=== PATIENT | female | born 1945 | race Caucasian/White ===

== ENCOUNTER 2016-08-11 11:21 | Day surgery (SDC) | payer MEDICARE, OTHER ==
[~2016-08-11] VITALS: Ht 162.6 cm; Wt 65.8 kg
[~2016-08-11 11:21] MED LIST: ALPR2TAB2 PO; ASCO100089 PO; ASPI-973 PO; BIOT10003 PO; CALC-3 PO; ESTR1PAT81 TRANSDERM; L. A1CAP7 PO; Lidocaine Topical 2% 30 mL Jelly ONE; MONT10TA23 PO; MULT-1018 PO; NIFE30TA79 PO; Sodium Chloride LOK Flush 10 mL Syringe IV PRN; VIT1TABL83 PO; fentaNYL-PF 50 mCg/mL 2 mL Inj IVPUSH PRN
[2016-08-11 12:47] VITALS: BP 126/84; PULSE 66; RESP 10; O2SAT 96
[2016-08-11] MEDS: 0.9% Sodium Chloride 1,000 ML IV PRN ×2 (13:11→13:20)
--- NOTE | 2016-08-11 13:39 | PCM.ENDCOL ---
Colonoscopy Date of Service: Aug 11, 2016 Physician Ra Hatch MD Pre Procedure Diagnosis: Screening and worsening constipation. Post Procedure Dx & Findings: Polyp hemorrhoids Procedure Colonoscopy Prep adequate 12 minutes FINDINGS: After unremarkable rectal examination of the Olympus video colonoscope was inserted patient's anal canal and was advanced to cecum. Landmarks are identified including the ileocecal valve and appendiceal orifice. Scope was withdrawn systematically. In the sigmoid colon there was a 6-7 mm polyp which was removed completely using cold snare. In the rectum retroflexion was done which showed hemorrhoids and anal canal was inspected carefully and way out and hemorrhoids noted. The mucosa of the cecum, ascending, transverse, descending, sigmoid, rectal mucosa lined with whitish, pink, smooth, glistening, normal-appearing mucosa, normal fine branching, underlying vascularity, normal haustra. The patient tolerated procedure and was transported to observation area. Impression Polyp status post complete removal Hemorrhoids Recommendation Repeat colonoscopy 5 years Presedation Assessment Risks and Benefits Informed consent was obtained from the patient after all risks and benefits including but not limited to drug reaction, infection, pain, bleeding, perforation, as well as alternatives were discussed. Patient monitoring Continuous pulse oximetry, cardiac monitoring, blood pressure monitoring, IV access, and oxygen at 2L per nasal cannula. Periprocedural Fentanyl: Fentanyl 100mcg Incrementally Midazolam: Midazolam 5mg Incrementally Complications There were no periprocedural complications identified. Post Procedure Plan Post Procedure Recommendations 1. Restrict activities today. 2. Resume normal activities in the morning. 3. Resume medications. 4. Patient informed of normal post procedure side effects as bloating, drowsiness, blood streaking in the stool. 5. average risk CRCS. If colon polyps come back as: -Hyperplastic- can repeat colonoscopy in 10 years -Tubular adenoma- repeat colonoscopy in 5 years -Tubulovillous/villous adenoma- repeat colonoscopy in 3 years -If any dysplasia- return to clinic as soon as possible 6. Please don't hesitate to call me with any questions. Ra Hatch MD Aug 11, 2016 13:39
[2016-08-11 13:41] VITALS: BP 108/73; PULSE 65; RESP 16; O2SAT 97
[2016-08-11 13:53] VITALS: BP 111/69; PULSE 66; O2SAT 97
--- NOTE | 2016-08-13 10:56 | PATH ---
SURGICAL PATHOLOGY Attending Physician:Ra Hatch M.D. CASE STATUS: Signed Out PATIENT NAME: KURT RUSSELL PID: [id number] : 1945 DATE COLLECTED:08/11/2016 00:00 SPECIMEN: Colon, Biopsy CLINICAL HISTORY: 1).SIGMOID COLON POLYP FINAL DIAGNOSIS: 1.SIGMOID COLON POLYP: TUBULAR ADENOMA. ICD10 CODE D12.5 GROSS DESCRIPTION: The specimen is received in one formalin filled container labeled with the patient's name, sublabeled "sigmoid colon polyp" and consists of a 0.6 x 0.5 x 0.3 CM portion of tissue which is entirely submitted in one cassette. 08/12/2016 DAC MICRO DESCRIPTION: See diagnosis. ICD-9 CODES: CPT CODES: 1: 34106 Electronically Signed Out Ariadna Allen MD [facility] Pathology [facility], [place] [address] Technical component performed at [facility], [address] [place] [address] Ave[address], [place], [address]
== END 2016-08-11 23:59 | disposition home or self-care (01) ==
LOC: END 11:21
PROVIDERS: ATTEND Internal Medicine
DX: D12.5 Benign neoplasm of sigmoid colon (principal); K64.9 Unspecified hemorrhoids; K59.00 Constipation, unspecified; R10.13 Epigastric pain; Z79.890 Hormone replacement therapy; Z79.82 Long term (current) use of aspirin
CPT/HCPCS: 45385; 88305; G0500; J2250; J3010; J7030

== ENCOUNTER 2016-08-17 15:43 | Emergency (ER) | payer MEDICARE, OTHER ==
[~2016-08-17] VITALS: Ht 162.6 cm; Wt 63.6 kg
[~2016-08-17 15:43] MED LIST changes: -Lidocaine Topical 2% 30 mL Jelly ONE; -Sodium Chloride LOK Flush 10 mL Syringe IV PRN; -fentaNYL-PF 50 mCg/mL 2 mL Inj IVPUSH PRN
[2016-08-17 15:48] VITALS: BP 134/87; PULSE 72; RESP 20; O2SAT 97
[2016-08-17 16:29] LABS: BASOPHILS % (AUTO) 0.8 % (0-3); EOSINOPHILS % (AUTO) 3.2 % (0-5); MONOCYTES % (AUTO) 9.5 % (4-12); Mean Corpuscular Hemoglobin 32.1 pg (27.0-35.0); Mean Corpuscular Volume 95.4 fL (81-100); NEUTROPHILS % (AUTO) 69.4 % (40-74); Platelet Count 241 bil/L (150-400)
[2016-08-17 16:48] LABS: Magnesium 2.2 mg/dL (1.6-2.6)
--- NOTE | 2016-08-17 17:33 | ED.REPORT ---
HPI-Abd Pain F 40 and Over Date of Service Aug 17, 2016 ED Provider: Leo Jeronimo MD A 71 year old female with a medical history including hypertension s/p colonoscopy (08/11/16) presents to the ED with intermittent RLQ abdominal pain onset three months ago, worsening this morning upon awakening. The pain now waxes and wanes between being rated 4/10 and rated 8/10, exacerbated by nothing in particular. The patient also reports diarrhea at onset which has since been replaced by constipation. She denies fever, chills, diaphoresis, nausea, vomiting, or other symptoms. Nursing Notes Stated Complaint: SIDE PAIN Chief Complaint: Female Abdominal Pain Nursing Notes Reviewed: Yes ([employer], meds not reconciled) Allergies: Coded Allergies: acetaminophen (Verified Allergy, Unknown, 08/11/16) benzonatate (Verified Allergy, Unknown, 08/11/16) codeine (Verified Allergy, Unknown, 08/11/16) diphenhydramine (Verified Allergy, Unknown, 08/11/16) mannitol (Verified Allergy, Unknown, 08/11/16) metronidazole (Verified Allergy, Unknown, 08/11/16) water for injection,sterile (Verified Allergy, Unknown, 08/11/16) zoledronic acid (Verified Allergy, Unknown, 08/11/16) zolpidem (Verified Allergy, Unknown, 08/11/16) Scheduled Ascorbic Acid (Vitamin C) 1,000 Mg Tab.chew 1,000 MG PO DAILY Aspirin (Aspirin) 81 Mg Tablet 81 MG PO DAILY Estradiol 0.05 mg/24 hr Patch (Estradiol 0.05 mg/24 hr Patch) 1 Each Patch.tdwk 1 PATCH TRANSDERM WEEKLY Montelukast (Montelukast) 10 Mg Tablet 10 MG PO HS Multivitamin (Multi Vitamin Daily) 1 Each Tablet 1 EACH PO DAILY Nifedipine ER (Nifedipine ER) 30 Mg Tab.er.24 30 MG PO DAILY Scheduled PRN Alprazolam (Xanax) 2 Mg Tablet 2 MG PO TID PRN PRN For Anxiety Miscellaneous Medications Biotin (Biotin) 10,000 Mcg Capsule 10,000 MCG PO Calcium Carbonate/Vitamin D3 (Calcium 500+D Tablet Chew) 1 Each Tab.chew 1 EACH PO L. Acidophilus/Bifid. Animalis (Probiotic 5 Billion Cell Cap) 1 Each Cap.sprink 2 EACH PO Vit B Comp/C/FA/Iron/Vit E (Vitamin B Complex Tablet) 1 Each Tablet 1 EACH PO General Time Seen by MD: 17:28 Chief Complaint Abdominal pain Hx Obtained From: Patient Arrived By: Walk-in Sudden in Onset?: No Onset Occurred: More than a week ago... (3 months, worsening this morning) Symptom Duration: Intermittent Location: : RLQ Quality: Painful Severity: Current: Pain level 4 out of 10 Severity: Maximum: Pain level 8 out of 10 Associated with: Reports: Constipation, Diarrhea, Denies: Fever, Nausea Pertinent Negative: Exacerbated by nothing, Relieved by nothing Recent Healthcare: Recent doctor visit, Previous surgery Similar Sx Previous: Yes Past Medical History Past Medical History Hypertension Past Surgical History Spinal surgeries 2 Hysterectomy Cholecystectomy Tonsillectomy Appendectomy Hernia repair x3 Status post colonoscopy 08/11/[address] Hatch, with a removed polyp and some hemorrhoids Smoking History Former Smoker Ambulatory Status Independent Review of Systems Constitutional: Denies: Chills, Fever Respiratory: Denies: Non-productive cough, Shortness of breath GI: Reports: Abdominal pain (RLQ), Constipation, Diarrhea (Resolved), Denies: Nausea, Vomiting Complete sys rev & neg: except as marked. Skin: Denies Diaphoresis Physical Exam Vital Signs Vital Signs (First) Date Time Temp Pulse Resp B/P Pulse Ox O2 Delivery O2 Flow Rate FiO2 08/17/16 15:48 36.6 72 20 134/87 97 Room Air Initial VS: Reviewed, Vital signs normal Head / Eyes: Atraumatic, Normocephalic ENT: Conjunctiva normal, No scleral icterus Neck: Supple, Full range of motion Skin: Warm, Dry, No cyanosis Neurologic: Alert, Oriented, Nonfocal Psychiatric: Mood/affect normal, Behavior normal, Normal thought content General/Constitutional: Awake, Alert, No acute distress Respiratory / Chest: Breath sounds NL, Breath sounds = bilat, No respiratory distress Cardiovascular: Heart rate NL, Regular rhythm, Heart sounds NL Abdomen: Soft, No guarding, No rebound Tenderness/Guarding/Rebound: Positive: Tender RLQ... (Trace) Interpretation & Diagnostics URINE DIPSTICK: 1.025 sp gravity 5 pH Trace Protein Normal Glucose + Small Ketones Normal Urobilinogen Trace Blood Otherwise Negative Lab Results Interpretation Result Diagram: 08/17/16 1618 08/17/16 1618 Test 08/17/16 16:18 08/17/16 16:54 White Blood Count 5.3th/mm3 (3.8-10.1) Red Blood Count 4.39mil/mm3 (3.90-5.20) Hemoglobin 14.1g/dL (12.0-15.6) Hematocrit 41.9% (35.0-46.0) Mean Corpuscular Volume 95.4fL (81-100) Mean Corpuscular Hemoglobin 32.1pg (27.0-35.0) Mean Corpuscular Hemoglobin Concent 33.7% (32.0-37.0) Red Cell Distribution Width 12.5% (12.3-15.4) Platelet Count 241bil/L (150-400) Neutrophils (%) (Auto) 69.4% (40-74) Lymphocytes (%) (Auto) 16.9% (14-46) Monocytes (%) (Auto) 9.5% (4-12) Eosinophils (%) (Auto) 3.2% (0-5) Basophils (%) (Auto) 0.8% (0-3) Sodium Level 137mEq/L (134-144) Potassium Level 3.8mEq/L (3.5-5.2) Chloride Level 98mEq/L (97-108) Carbon Dioxide Level 26mmol/L (18-29) Blood Urea Nitrogen 15mg/dL (8-27) Creatinine 0.73mg/dL (0.57-1.00) Estimat Glomerular Filtration Rate 113mL/min (>59) Glucose Level 147mg/dL (60-99) Calcium Level 10.1mg/dL (8.5-10.1) Magnesium Level 2.2mg/dL (1.6-2.6) Total Bilirubin 0.3mg/dL (0.0-1.2) Aspartate Amino Transf (AST/SGOT) 17U/L (0-50) Alanine Aminotransferase (ALT/SGPT) 14U/L (0-32) Alkaline Phosphatase 70U/L (25-165) Total Protein 6.9g/dL (6.4-8.4) Albumin 4.2g/dL (3.4-5.0) Lipase 26U/L (13-60) Hold Ferguson Top Tube Received (Received) Urine Color Yellow (YELLOW) Urine Appearance Clear (CLEAR,HAZY) Urine pH 5.5 (5.0-8.0) Urine Specific Ripley 1.025 (1.003-1.035) Urine Protein Negativemg/dL (NEG,TRACE) Urine Glucose (UA) Negativemg/dL (NEGATIVE) Urine Ketones Tracemg/dL (NEGATIVE) Urine Occult Blood Negative (NEGATIVE) Urine Nitrite Negative (NEGATIVE) Urine Bilirubin Negative (NEGATIVE) Urine Urobilinogen Normalmg/dL (NORMAL) Urine Leukocyte Esterase Negative (NEGATIVE) Urine RBC 0-2/hpf (0-2) Urine WBC 0-5/hpf (0-5) Urine Epithelial Cells Few/hpf (NONE-MOD) Urine Crystals None seen (NONE SEEN) Urine Bacteria Few/hpf (NONE-FEW) Urine Hyaline Casts None/lpf (NONE) Urine Granular Casts None seen (NONE SEEN) Urine Waxy Casts None seen (NONE SEEN) Urine Red Blood Cell Casts None seen (NONE SEEN) Urine White Blood Cell Casts None seen (NONE SEEN) Urine Mucus Present (None Seen) Urine Trichomonas None seen (NONE SEEN) Urine Yeast None (NONE SEEN) Urinalysis Comment None Urine Culture Reflexed Not indicated Hold Urine Received (Received) Lab Results Interpretation: CBC normal CMP normal CT Abd / Pelvis Interpretation IMPRESSION: 1. No visualized cause of pain. Dictated by: Prudence Lala M.D. on 08/17/2016 at 19:36 Study type: Abdominal CT IV contrast Interpretation / Wet Read by: Interpret - Radiologist Re-Eval/Medical Decision Med Decision/Clinical Course This is a 71-year-old female referred in by the extension work director to worsening of abdominal discomfort with recent colonoscopy. Patient reports she has had several months of intermittent right lower quadrant pain, in May had some diarrhea, and then has had subsequent chronic problems with constipation. As a result she underwent colonoscopy in the past week with a polyp that was removed. Since the procedure she developed a worsening of discomfort, she reports a similar character pronounced persistent all the time and bothers her quite a bit. She reports numerous intolerances and she really cannot take any pain medicines, and declines medicine. She has Tylenol with specific allergy but she does note she can take Tylenol she is wants to avoid admission declines any medicine department. She has not had any fevers chills or dysuria and has no additional complaints. She has been able to eat and drink without difficulty. She called in to her GI doctor and reported the increasing discomfort and was referred into the ED for further evaluation. Department the patient clinically appears well. She has normal vitals, and really a very benign exam, she was not have any particular tenderness-no guarding, no rebound. However given the recent surgical procedure, change in pain workup was pursued. Blood work was normal, And pelvis was normal. Her urine dip was positive for blood, but a formal urinalysis was negative with no red cells. At this point a dangerous cause of the pain remains uncertain. The patient is frustrated that a definitive cause been discovered, attempted to talk regarding options for attempted pain management-the patient states that she has not taken any medicine, ultimately other than Tylenol-sided recommended and she has accepted a dose of Tylenol in department. I have recommended GI follow-up she should call tomorrow to see if they have any further suggestions. She should continue her bowel regimen management. She was advised that she again had new or worsening symptoms, increasing pain, fever, nausea vomiting, etc. she is to return to the emergency department. Patient is discharged, clinically well- appearing Source of Hx: Old records Re-Evaluation/Progress : Time of Eval: 20:19 Patient Status: Condition improved Re-Evaluation/Progress Note: Discussed with patient CT and lab results, diagnosis, and plan for discharge. Follow-up and return to the ER instructions given. Patient advised to follow-up for colonoscopy biopsy results. Patient agrees with plan for care and all questions were addressed. Differential Diagnosis: Positive: Acute abdominal pain, Negative: Abdominal aortic aneurysm, Esophageal rupture, Gun shot wound abdomen, Pancreatitis, Peritonitis, Stab wound abdomen, Volvulus Counseled Regarding: Diagnosis, Lab results, Need for follow-up, When/why to return to ED Discharge & Departure Primary Impression: Abdominal pain Abdominal location: right lower quadrant Qualified Code: R10.31 - Right lower quadrant pain Disposition: Home Discharge Condition All VS Reviewed: Yes Condition: Improved Additional Instructions: 1. A dangerous cause of the pain was not identified-there were no findings on your tests of a complication from the recent colonoscopy and polypectomy. 2. Continue Tylenol as needed. 3. Follow up with your extension work director for results of the pathology from the polyp removal 4. Activities and diet as tolerated. 5. Return if new or worsening symptoms 6. Note-although the rapid urine dip test suggested there might be blood in your urine, no blood was seen on formal urinal Referrals: Mari Mullins PA-C (PCP) Scribe Attestation Portions of this note were transcribed by Bailee Waters. I, Dr. Jeronimo, personally performed the history, physical exam, and medical decision-making; I reviewed and confirmed the accuracy of the information in the transcribed note. Signed by: Vj Patten, 08/17/2016, 20:25 copies to: Mari Mullins PA-C, Matthew F MD Aug 17, 2016 17:33 BAILEE WATERS Aug 17, 2016 18:41
[2016-08-17 18:19] VITALS: BP 131/83; PULSE 60; RESP 16; O2SAT 100
--- NOTE | 2016-08-17 19:40 | DRSVH ---
PROCEDURE: CT ABDOMEN AND PELVIS WITH CONTRAST ([id number]) INDICATIONS: RLQ s/p colonoscopy 1 wk ago TECHNIQUE: After the administration of intravenous contrast, 5 mm thick sections acquired from the diaphragm to the symphysis. 5 mm coronal and sagittal reformats were acquired. For radiation dose reduction, the following was used: automated exposure control, adjustment of mA and/or kV according to patient siz e. COMPARISON: None. FINDINGS: Image quality: Excellent. ABDOMEN: Lung bases: Lung bases are clear. Heart size is normal. Solid organs: Liver is enlarged steatosis. The spleen is normal in size. Multiple low attenuation he patic foci are present most suggestive of cysts. The largest measures approximately [address] is not visualized. Biliary system is non dilated. Pancreas enhances normally. No adrenal nodule s. Kidneys demonstrate normal size and enhancement, without hydronephrosis. Peritoneum and bowel: Bowel loops demonstrate normal wall thickness and caliber. No free fluid or a ir. Nodes and vessels: No retroperitoneal or mesenteric adenopathy by size criteria. Aorta and inferior vena cava are normal in size. Miscellaneous: No ventral hernias. PELVIS: Genitourinary: Bladder wall thickness is normal. Miscellaneous: No inguinal hernias or adenopathy. Bones: No suspicious bony lesions. No vertebral body compression fractures. Posterior fixation is present at L3 and L5. IMPRESSION: 1. No visualized cause of pain. Dictated by: Prudence Lala M.D. on 08/17/2016 at 19:36 Approved by: Prudence Lala M.D. on 08/17/2016 at 19:38
[2016-08-17 19:49] LABS: APPEARANCE,URINE CLEAR (CLEAR,HAZY); COLOR,URINE YELLOW (YELLOW); PH,URINE 5.5 (5.0-8.0)
[2016-08-17 19:50] LABS: OCCULT BLOOD,URINE NEGATIVE (NEGATIVE); UROBILINOGEN,URINE NORMAL (NORMAL)
[2016-08-17 20:28] VITALS: BP 120/79; PULSE 62; RESP 16; O2SAT 98
== END 2016-08-17 20:40 | disposition home or self-care (01) ==
LOC: SED 15:43
DX: R10.31 Right lower quadrant pain (principal); I10 Essential (primary) hypertension; Z79.82 Long term (current) use of aspirin; Z88.5 Allergy status to narcotic agent; Z88.6 Allergy status to analgesic agent; Z88.8 Allergy status to other drugs, medicaments and biological substances; Z87.891 Personal history of nicotine dependence
CPT/HCPCS: 36415; 74177; 80053; 81000; 83690; 83735; 85025; 99284; Q9967